=== PATIENT | female | born 1955 | race Caucasian/White ===

== ENCOUNTER → 2022-01-13 11:39 | Outpatient (CLI) | payer MEDICARE, SELFPAY | PROVIDERS: PCP Family Medicine; Referring Provider Family Medicine; Visit Provider Family Medicine | DX: M85.88 Other specified disorders of bone density and structure, other site (principal); Z13.820 Encounter for screening for osteoporosis; Z78.0 Asymptomatic menopausal state; Z92.23 Personal history of estrogen therapy; Z90.710 Acquired absence of both cervix and uterus | CPT/HCPCS: 77080 ==

== ENCOUNTER → 2022-10-02 14:02 | Outpatient (CLI) | payer MEDICARE, SELFPAY ==
--- NOTE | 2022-10-02 | DI.MG.S_ITS ---
BILATERAL DIGITAL SCREENING MAMMOGRAM 3D/2D WITH CAD: 10/02/2022 CLINICAL: Routine screening. Family history of breast cancer. Comparison is made to exams dated: 04/18/2021 mammogram and 10/23/2019 mammogram - Outside facility. There are scattered areas of fibroglandular density in both breasts (category b / 25%-50% glandular tissue). Current study was also evaluated with a Computer Aided Detection (CAD) system. No significant masses, calcifications, or other findings are seen in either breast. There has been no significant interval change. IMPRESSION: NEGATIVE There is no mammographic evidence of malignancy. A 1 year screening mammogram is recommended. Based on the Tyrer Cuzick model (a risk assessment model) the patient's lifetime risk is 7.6% and her 10 year risk is 4.0%. According to the ACR, ACS, and NCCN guidelines, an annual breast MRI exam along with mammogram is recommended if the patient's lifetime risk is 20% or greater. This exam was interpreted at Station ID: [id number]. NOTE: For mammograms, a report in lay terms will be sent to the patient. Approximately 15% of breast malignancies will not be visualized mammographically. In the management of a palpable breast mass, a negative mammogram must not discourage biopsy of a clinically suspicious lesion. Electronically Signed By: Dandy galindo/nati:10/02/2022 16:47:50 letter sent: Normal Exam ACR BI-RADS Category 1: Negative [id number]
== END ==
PROVIDERS: PCP Family Medicine; Referring Provider Family Medicine; Visit Provider Family Medicine
DX: Z12.31 Encounter for screening mammogram for malignant neoplasm of breast (principal); Z80.3 Family history of malignant neoplasm of breast
CPT/HCPCS: 77063; 77067

== ENCOUNTER → 2022-12-16 13:56 | Outpatient (CLI) | payer MEDICARE, SELFPAY | PROVIDERS: PCP Family Medicine; Visit Provider Registered Nurse | DX: J02.9 Acute pharyngitis, unspecified (principal) | CPT/HCPCS: 87070 ==

== ENCOUNTER 2022-12-27 00:36 | Emergency (ER) | payer MEDICARE, SELFPAY ==
[2022-12-27 00:51] VITALS: BP 129/73; PULSE 111; RESP 22; TEMP 36.8; O2SAT 98; BMI 23.4
== END 2022-12-27 02:14 | disposition left against medical advice (07) ==
PROVIDERS: Emergency Provider Emergency Medicine; PCP Family Medicine
DX: R05.9 Cough, unspecified (principal)
CPT/HCPCS: 99281

== ENCOUNTER → 2023-07-19 12:33 | Outpatient (CLI) | payer MEDICARE, SELFPAY | PROVIDERS: PCP Family Medicine; Visit Provider Nurse Practitioner Family | DX: R30.0 Dysuria (principal) | CPT/HCPCS: 87077; 87086; 87186 ==

== ENCOUNTER → 2023-08-04 12:18 | Outpatient (CLI) | payer MEDICARE, SELFPAY | PROVIDERS: PCP Family Medicine; Visit Provider Student in an Organized Health Care Education/Training Program | DX: R30.0 Dysuria (principal) | CPT/HCPCS: 87077; 87086; 87186 ==

== ENCOUNTER → 2024-01-24 16:02 | Outpatient (CLI) | payer MEDICARE, SELFPAY ==
--- NOTE | 2024-01-24 16:03 | DI.RAD.S_ITS ---
PROCEDURE: XR CHEST 2V INDICATIONS: cough 3 weeks TECHNIQUE: 2 views of the chest were acquired. COMPARISON: None. FINDINGS: Surgical changes and devices: None. Lungs and pleura: Lungs are clear. Question 9 mm left lung pulmonary nodule versus benign and rib lesion. No pleural effusions or pneumothorax. Mediastinum: Mediastinal contours are normal. Heart size is normal. Bones and chest wall: No suspicious bony abnormalities. Soft tissues appear unremarkable. IMPRESSION: No acute pulmonary process. Question 9 mm left lung pulmonary nodule versus benign rib lesion. Comment: Recommend nonemergent chest CT. Dictated by: Khai Zamora M.D. on 01/24/2024 at 16:34 Approved by: Khai Zamora M.D. on 01/24/2024 at 16:40
== END ==
LOC: RAD 16:03
PROVIDERS: PCP Family Medicine; Referring Provider Student in an Organized Health Care Education/Training Program; Visit Provider Student in an Organized Health Care Education/Training Program
DX: R05.8 Other specified cough (principal); R53.83 Other fatigue
CPT/HCPCS: 71046

== ENCOUNTER → 2024-02-12 14:00 | Outpatient (CLI) | payer MEDICARE, SELFPAY ==
--- NOTE | 2024-02-12 14:08 | DI.CT.S_ITS ---
PROCEDURE: CT CHEST W CON INDICATIONS: nodule on left lung TECHNIQUE: After the administration of intravenous contrast, 5 mm thick sections acquired from the pulmonary apices to the posterior costophrenic angles. 1 mm axial lung, 5 mm thick coronal and sagittal reformats and 7 mm axial MIP were acquired. For radiation dose reduction, the following was used: automated exposure control, adjustment of mA and/or kV according to patient size. COMPARISON: [facility], CR, XR CHEST 2V, 01/24/2024, 16:01. FINDINGS: Image quality: Diagnostic Lungs and pleura: No suspicious pulmonary nodule. Scattered atelectasis/scarring. 6 mm left upper lobe pulmonary nodule with ground-glass density . No dense consolidation. No pleural effusion. Mediastinum, heart, and esophagus: No pathologic lymph nodes by size criteria. Unremarkable esophagus. Normal heart size. In the left upper lung, there is cavitary pleural based lesion measuring 1.2 cm. Chest wall and thyroid: unremarkable Upper abdomen: Small liver lesions, including a liver dome segment 4 lesion measuring 1.5 cm. Bones: There are degenerative changes seen Left 5th rib bone island corresponds to the radiographic abnormality IMPRESSION: Left 5th rib bone island corresponds to the radiographic abnormality. However, nodule along the left upper mediastinal pleura is cavitary measuring 1.2 cm. Short interval follow-up with CT or PET-CT is recommended, versus sampling, although the location may preclude tissue acquisition. There are also indeterminate small liver lesions, most notably at the liver dome in segment 4 measuring 1.5 cm. Consider Eovist liver MRI is suggested to further evaluate. Ground-glass nodule measuring 6 mm, attention on follow-up in at most 1 year. Dictated by: Delmar Rivera M.D. on 02/13/2024 at 13:20 Approved by: Delmar Rivera M.D. on 02/13/2024 at 13:30
--- NOTE | 2024-02-12 14:08 | DI.RAD.S_ITS ---
PROCEDURE: XR DEXA AXIAL SKELETON INDICATIONS: asymtomatic menopausal state COMPARISON: [facility], CR, XR DEXA AXIAL SKELETON, 01/13/2022, 12:00. FINDINGS: Lumbar Spine: Bone mineral density 0.765 g/cm2, T score -2.6, osteoporosis, change from previous-8.0%, significant. Left Hip: Bone mineral density 0.647 g/cm2, T score -2.4, osteopenia, change from previous-10.0%, significant. Left Femoral Neck: Bone mineral density 0.596 g/cm2, T score -2.3, osteopenia, change from previous-10.1%, significant. Fracture Risk Calculation (when applicable): 10-year fracture risk of a major osteoporotic fracture not valid in patients with osteoporosis. (T score greater or equal to -1.0 to: NORMAL) (T score from -1.1 to -2.4: OSTEOPENIA) (T score less than or equal to -2.5: OSTEOPOROSIS) IMPRESSION: Osteoporosis. The patient is at a high risk of fracture. Follow-up guidelines as follows: Osteoporosis: Consider a repeat DEXA and Vertebral Fracture Assessment (VFA) exam in 2 years or sooner if medically necessary, to reassess this patient's status. Osteopenia: Consider a repeat DEXA in 2-3 years to reassess this patient's status, or if there is a new clinical indication. Normal: Consider a repeat DEXA in 5 years or sooner, or if there is a new clinical indication. All treatment decisions require clinical judgment and consideration of individual patient factors, including patient preferences, comorbidities, previous drug use, risk factors not captured in the FRAX model (e.g., frailty, falls, vitamin D deficiency, increased bone turnover, interval significant decline in bone density ) and possible under- or over-estimation of fracture risk by FRAX. In addition, the NOF Guide recommends that FDA-approved medical therapies be considered in postmenopausal women and men age >= 50 years with a: * Hip or vertebral (clinical or morphometric) fracture * T-score of <=-2.5 at the spine or hip * Ten-year fracture probability by FRAX of >= 3% for hip fracture or >=20% for major osteoporotic fracture. People with diagnosed cases of osteoporosis or at high risk for fracture should have regular bone mineral density tests. For patients eligible for Medicare, routine testing is allowed once every 2 years. The testing frequency can be increased to one year for patients who have rapidly progressing disease, those who are receiving or discontinuing medical therapy to restore bone mass, or have additional risk factors. Dictated by: Divya Hoang M.D. on 02/13/2024 at 21:16 Approved by: Divya Hoang M.D. on 02/13/2024 at 21:17
[2024-02-12 14:36] LABS: Estimated Glomerular Filt Rate > 60 mL/min (>60)
== END ==
PROVIDERS: Radiology Diagnostic Radiology; PCP Family Medicine; Referring Provider Family Medicine; Visit Provider Family Medicine
DX: R93.7 Abnormal findings on diagnostic imaging of other parts of musculoskeletal system (principal); K76.9 Liver disease, unspecified; R91.8 Other nonspecific abnormal finding of lung field; R91.1 Solitary pulmonary nodule; Z78.0 Asymptomatic menopausal state; Z15.89 Genetic susceptibility to other disease
CPT/HCPCS: 36415; 71260; 77080; 82565; Q9967

== ENCOUNTER → 2024-02-25 16:02 | Outpatient (CLI) | payer MEDICARE, SELFPAY ==
--- NOTE | 2024-02-25 16:03 | DI.MRI.S_ITS ---
PROCEDURE: MR ABDOMEN LIVER PROTOCOL INDICATIONS: LIVER LESION TECHNIQUE: Coronal HASTE, axial 2D FLASH in- and [id number]; axial breath-hold T2 FSE. Dynamic axial VIBE during the administration of contrast; post-contrast coronal VIBE or 2D FLASH with fat saturation from the hepatic dome to the iliac crests. Optional diffusion weighted imaging and ADC may be performed. COMPARISON: None. FINDINGS: Image quality: Diagnostic. Lung bases: Unremarkable. Liver: At the liver dome, there is a T2 intermediate lesion measuring 1.7 cm (series 20, image 7). There is an associated vascular shunt associated with loose lesion. There is questionable discontinuous enhancement present on the portal venous phase, but this is not confirmed with delayed sequences. This does not retain contrast with hepatic biliary phase. 0.7 cm flash filling hemangioma in segment 6 (series 12, image 48). Gallbladder: No gallstones or wall thickening. Biliary ducts: No biliary dilation. Pancreas: No ductal dilation. Spleen: Size is within normal limits. Adrenal Glands: No adrenal nodules. Kidneys and Ureters: No hydronephrosis. No solid mass. No complex renal cystic lesion which requires follow up. Stomach and Bowel: Normal colonic caliber, without significant wall thickening. Peritoneum: No abnormal intraperitoneal fluid. No free air. Ventral Wall: No hernia. Abdominal Nodes: No retroperitoneal or mesenteric adenopathy by size criteria. Vessels: Aorta and inferior vena cava are normal in size. Bones: No aggressive osseous abnormality. IMPRESSION: 1.7 cm T2 intermediate lesion at the liver dome which is not retain contrast on the hepatobiliary phase. Findings probably represent a benign hemangioma, given T2 appearance, but there are some atypical features noted. Recommend six-month follow-up with MRI or CT to document stability, if priors are not available outside 02/12/2024. Dictated by: Gato Burgos M.D. on 02/26/2024 at 11:30 Approved by: Gato Burgos M.D. on 02/26/2024 at 11:44
== END ==
PROVIDERS: PCP Family Medicine; Referring Provider Family Medicine; Visit Provider Family Medicine
DX: K76.9 Liver disease, unspecified (principal)
CPT/HCPCS: 74183; A9579

== ENCOUNTER → 2024-03-11 15:35 | Outpatient (CLI) | payer MEDICARE, SELFPAY ==
--- NOTE | 2024-03-11 15:36 | DI.MRI.S_ITS ---
PROCEDURE: MR ANKLE LT WO CON INDICATIONS: PERONEAL TENDINITIS, LEFT LEG TECHNIQUE: Noncontrast sagittal T1 spin echo and T2 fast spin echo with fat saturation, axial proton density fast spin echo and T2 fast spin echo with fat saturation, coronal T1 spin echo and T2 fast spin echo with fat saturation through the ankle/hindfoot. COMPARISON: [facility], CR, XR FOOT 3 VIEWS WEIGHT BEARING LEFT, 02/28/2024, 14:51. FINDINGS: Image quality: Excellent. Bones and joints: No bone marrow contusions or fractures. No hindfoot coalitions. No osteochondral injuries of the talar dome. Small tibiotalar joint effusions. Medial structures: Small amount of fluid surrounds the tibialis posterior and flexor hallucis longus tendons. The posterior tibialis, flexor digitorum longus, and flexor hallucis longus tendons are intact. The posterior tibial neurovascular bundle appears normal within the tarsal tunnel, without extrinsic mass effect. The deep layer (anterior and posterior tibiotalar ligaments) and superficial layer (tibionavicular, tibiospring, and tibiocalcaneal ligaments) of the deltoid ligament appear normal. The spring ligament components (superomedial calcaneonavicular, medioplantar oblique calcaneonavicular, and inferoplantar longitudinal ligaments) are intact. Lateral structures: The anterior talofibular ligament is attenuated and demonstrates internal T2 signal elevation. The calcaneofibular, and posterior talofibular ligaments appear intact. More superiorly, the anterior and posterior tibiofibular ligaments appear intact, as is the intermalleolar ligament. The tibiofibular syndesmosis is normal in width at 2 mm or less. The peroneus longus and brevis tendons demonstrate normal location and morphology. Adjacent bony peroneal tubercle and retrotrochlear prominence are normal in size. The sinus tarsi demonstrates normal fatty signal, without edema, fibrosis, or cyst formation. Visualized sinus tarsi components (cervical ligament, interosseous talocalcaneal ligament, roots of the inferior extensor retinaculum) appear normal. The calcaneonavicular and calcaneocuboid components of the bifurcate ligament appear intact. The dorsal calcaneocuboid ligament appears intact. Anterior structures: The tibialis anterior, extensor hallucis longus, and extensor digitorum longus tendons appear intact. The dorsal talonavicular ligament appears intact. Posterior and plantar structures: Low-grade tearing of the lateral Achilles tendon within its mid/distal aspects. Medial and lateral bands of the plantar fascia are of normal thickness. No abductor digiti quinti muscle atrophy to suggest Swanson neuropathy. IMPRESSION: 1. Partial-thickness tearing of the anterior talofibular ligament. 2. Medial flexor tenosynovitis. 3. Small ankle joint effusion. 4. Low-grade tearing of the Achilles tendon. Dictated by: Nataliya Mccormack M.D. on 03/12/2024 at 10:38 Approved by: Nataliya Mccormack M.D. on 03/12/2024 at 10:41
== END ==
LOC: MRI 15:36
PROVIDERS: PCP Family Medicine; Referring Provider Podiatrist; Visit Provider Podiatrist
DX: M76.72 Peroneal tendinitis, left leg (principal); M25.472 Effusion, left ankle; S93.492A Sprain of other ligament of left ankle, initial encounter; M65.972 Unspecified synovitis and tenosynovitis, left ankle and foot
CPT/HCPCS: 73721

== ENCOUNTER → 2024-05-20 12:31 | Outpatient (CLI) | payer MEDICARE, SELFPAY ==
[2024-05-20 12:56] LABS: Estimated Glomerular Filt Rate > 60 mL/min (>60)
--- NOTE | 2024-05-20 13:28 | DI.CT.S_ITS ---
PROCEDURE: CT CHEST W CON INDICATIONS: F/U CT /CAVITARY GROUND GLASS LESION TECHNIQUE: After the administration of intravenous contrast, 5 mm thick sections acquired from the pulmonary apices to the posterior costophrenic angles. 1 mm axial lung, 5 mm thick coronal and sagittal reformats and 7 mm axial MIP were acquired. For radiation dose reduction, the following was used: automated exposure control, adjustment of mA and/or kV according to patient size. COMPARISON: [facility], CT, CT CHEST W CON, 02/12/2024, 14:44. FINDINGS: Image quality: Diagnostic. Thyroid: Within normal limits. Cardiac: Heart size within normal limits. No pericardial effusion. Aorta: Thoracic aortic diameter within normal limits. Pulmonary Artery: Main pulmonary artery diameter within normal limits. Lungs: Persistent left upper lobe apical segment 1.1 cm mean axis diameter thick-walled cavitary nodule without significant change in the cavitation or wall thickness, present adjacent to the origin of the left subclavian artery (3/82). The wall of this nodule measures 4 mm in thickness. No other focal lung consolidation. Pleura: No pneumothorax or pleural effusion. Airways: The trachea and mainstem bronchi are patent. Lymph Nodes: No mediastinal, hilar, or axillary lymphadenopathy. Esophagus: Within normal limits. Bones: No acute osseous abnormality. Upper Abdomen: Re-identified hypodense hepatic lesions; please see the 02/25/2024 MRI abdomen report for details. Bilateral simple renal cysts. IMPRESSION: Persistent left upper lobe apical segment 1.1 cm cavitary nodule, which may represent an underlying primary lung malignancy versus tuberculosis, aspergillosis, or other granulomatous/fungal infection. PET-CT and pulmonology referral recommended for further evaluation. Dictated by: Jan Muse M.D. on 05/20/2024 at 16:14 Approved by: Jan Muse M.D. on 05/20/2024 at 16:30
== END ==
PROVIDERS: PCP Family Medicine; Referring Provider Family Medicine; Visit Provider Family Medicine
DX: N20.0 Calculus of kidney (principal); R91.1 Solitary pulmonary nodule; R93.89 Abnormal findings on diagnostic imaging of other specified body structures; K76.9 Liver disease, unspecified
CPT/HCPCS: 36415; 71260; 82565; Q9967

== ENCOUNTER → 2024-08-18 13:41 | Outpatient (CLI) | payer MEDICARE, SELFPAY ==
--- NOTE | 2024-08-18 13:45 | DI.MRI.S_ITS ---
PROCEDURE: MR ABDOMEN LIVER PROTOCOL INDICATIONS: LIVER LESION TECHNIQUE: Coronal HASTE, axial 2D FLASH in- and [id number]; axial breath-hold T2 FSE. Dynamic axial VIBE during the administration of contrast; post-contrast coronal VIBE or 2D FLASH with fat saturation from the hepatic dome to the iliac crests. Optional diffusion weighted imaging and ADC may be performed. COMPARISON: [facility], , MR ABDOMEN LIVER PROTOCOL, 02/25/2024, 16:12. [facility], [place], [place] PET CT FUSION SKULL 2 THIGH, 06/04/2024, 14:25. FINDINGS: Image quality: Diagnostic. Lung bases: Unremarkable. Liver: The 1.9 centimeter T2 intermediate, T1 hypointense lesion at the liver dome demonstrates peripheral, discontinuous arterial enhancement and delayed fill-in on today's examination with ProHance contrast, consistent with a benign hemangioma. Additional benign liver cysts are present. Stable subcentimeter flash filling hemangioma in segment 6 (series 6, image 24) Gallbladder: No gallstones or wall thickening. Biliary ducts: No biliary dilation. Pancreas: No ductal dilation. Spleen: Size is within normal limits. Adrenal Glands: No adrenal nodules. Kidneys and Ureters: No hydronephrosis. No solid mass. No complex renal cystic lesion which requires follow up. Stomach and Bowel: Normal colonic caliber, without significant wall thickening. Peritoneum: No abnormal intraperitoneal fluid. No free air. Ventral Wall: No hernia. Abdominal Nodes: No retroperitoneal or mesenteric adenopathy by size criteria. Vessels: Aorta and inferior vena cava are normal in size. Bones: No aggressive osseous abnormality. IMPRESSION: The previously described liver lesion at the dome demonstrates benign features on today's examination, consistent with a benign hemangioma. This requires no further follow-up. Additional benign cysts are present. Dictated by: Gato Burgos M.D. on 08/18/2024 at 15:21 Approved by: Gato Burgos M.D. on 08/18/2024 at 15:26
== END ==
PROVIDERS: PCP Family Medicine; Referring Provider Family Medicine; Visit Provider Family Medicine
DX: K76.89 Other specified diseases of liver (principal)
CPT/HCPCS: 74183; A9579